=== PATIENT | male | born 1960 | race Caucasian/White ===

== ENCOUNTER 2016-07-29 11:08 | Inpatient (IN) | payer MEDICAID ==
[~2016-07-29] VITALS: Ht 193 cm; Wt 89.1 kg
[~2016-07-29 11:08] MED LIST: FOLI1TAB51 PO; GABA300C8 PO; LISI2.5T47 PO; METF-312 PO; NOR5T GT; NOR5T PO; THIA50CA PO; TRAZ100T2 PO
[2016-07-29] MEDS ORDERED: SODIUM CHLORIDE 0.9% 500 ML IVB ONE (12:17)
[2016-07-29] MEDS ORDERED: LEVOFLOXACIN 750MG 150 ML IV ONE (12:30)
[2016-07-29 13:32] LABS: Basophils # (auto) 0 uL; Basophils % (auto) 0.6 % (0.0-2.0); Eosinophils # (auto) 0.1 uL; Eosinophils % (auto) 1.5 % (0.0-7.0); Hematocrit 25.7 % (41.0-53.0); Hemoglobin 8.5 g/dL (13.5-17.5); Lymphocytes # (auto) 0.6 uL; Lymphocytes % (auto) 9.2 % (10.0-50.0); Mean Corpuscular Hemoglobin 31.1 pg (28.0-32.0); Mean Corpuscular Hgb Conc. 33.2 g/dL (32.0-36.0); Mean Corpuscular Volume 93.7 fL (80.0-100.0); Mean Platelet Volume 7.9 fL (7.4-10.4); Monocytes # (auto) 0.7 uL; Neutrophils # (auto) 4.8 uL; Neutrophils % (auto) 77.7 % (37.0-80.0); Platelet Count (auto) 213 10^3/uL (140-450); White Blood Cell 6.2 10^3/uL (4.4-10.8)
[2016-07-29 13:40] LABS: Albumin 2.6 g/dL (3.4-5.0); BUN/Creatinine Ratio 22.8; Bilirubin, Total 0.3 mg/dL (0.2-1.0); Calcium 7.9 mg/dL (8.5-10.1); Magnesium 2.3 mg/dL (1.6-2.6); Potassium 4.8 mmol/L (3.5-5.1)
[2016-07-29 13:46] LABS: INR 1.04 (0.9-1.15); Prothrombin Time 10.7 sec (9.37-12.3)
[2016-07-29] MEDS ORDERED: FUROSEMIDE 40 MG/4 ML VIAL IV ONE (14:15)
[2016-07-29] MEDS ORDERED: MORPHINE SULF INJ 2 MG/ML SYRINGE 1ML IV PRN (15:30)
[2016-07-29] MEDS ORDERED: ONDANSETRON HCL 4 MG/2 ML VIAL IV PRN (15:30)
[2016-07-29] MEDS ORDERED: NITROGLYCERIN 0.4 MG SL TAB SL PRN (15:30)
[2016-07-29] MEDS ORDERED: DOCUSATE SOD 100 MG CAP PO PRN (15:30)
[2016-07-29] MEDS ORDERED: TEMAZEPAM 15 MG CAP PO PRN (15:30)
[2016-07-29] MEDS ORDERED: DEXTROSE (50%) 50ML SYRG IV PRN (15:30)
[2016-07-29] MEDS ORDERED: GABAPENTIN 300 MG CAP PO ONE (15:45)
[2016-07-29] MEDS ORDERED: LISINOPRIL 5 MG TAB PO ONE (15:45)
[2016-07-29] MEDS ORDERED: POTASSIUM CHLORIDE 8 MEQ TAB PO ONE (15:45)
[2016-07-29] MEDS ORDERED: THIAMINE HCL 100 MG TAB PO ONE (15:45)
[2016-07-29] MEDS ORDERED: FAMOTIDINE 20 MG TAB PO ONE (15:45)
[2016-07-29] MEDS ORDERED: B-COMPLEX W/ C & FOLIC ACID(NEPHROVITE TAB) PO ONE (15:45)
[2016-07-29] MEDS: ENOXAPARIN SOD 40 MG/0.4 ML SYRINGE SC SCH (16:08)
[2016-07-29] MEDS: SODIUM CHLORIDE 0.9% 1,000 ML IV SCH (16:09)
[2016-07-29] MEDS: MULTIPLE VITAMIN TAB PO SCH (16:09)
[2016-07-29] MEDS: ACCU-CHEK COMFORT CURVE STRIP VI SCH ×2 (16:10→22:00)
[2016-07-29] MEDS: metFORMIN HYDROCHLORIDE 500 MG TAB PO SCH (16:11)
[2016-07-29] MEDS: InsuLIN REG 1unit/0.01ml Soln (100units/ml) SC SCH ×2 (16:11→22:00)
[2016-07-29 16:28] LABS: Urine Bilirubin Negative (Negative); Urine Color Yellow (Yellow); Urine Glucose Normal (Normal); Urine Ketone Negative (Negative); Urine RBC 20 /hpf (0 - 3); Urine Urobilinogen Normal (Negative)
[2016-07-29 16:36] LABS: Temperature: 22.7 C (20.0-25.0)
[2016-07-29 16:37] LABS: Urine Blood 3+ /uL (Negative); Urine Nitrite POSITIVE (Negative)
[2016-07-29] MEDS: POTASSIUM CHLORIDE 8 MEQ TAB PO SCH (16:58)
[2016-07-29] MEDS: FUROSEMIDE 20 MG TAB PO SCH (16:58)
[2016-07-29] MEDS: Boost Glucose Control 8 Ounces PO SCH ×2 (18:04→22:00)
[2016-07-29] MEDS: NICOTINE 21MG/24 HR TOPICAL PATCH TD SCH (18:58)
[2016-07-29] MEDS: HYDROcodone-ACET 5/325MG TAB PO PRN (21:10)
[2016-07-29] MEDS: FAMOTIDINE 20 MG TAB PO SCH (22:00)
[2016-07-29] MEDS: GABAPENTIN 300 MG CAP PO SCH (22:00)
[2016-07-29] MEDS: traZODone HCL 50 MG TAB PO SCH (22:00)
[2016-07-29 23:55] VITALS: BP 116/70
[2016-07-30 05:29] VITALS: BP 127/61
[2016-07-30] MEDS: Boost Glucose Control 8 Ounces PO SCH ×4 (06:00→23:05)
[2016-07-30 06:03] LABS: Basophils # (auto) 0 uL; Basophils % (auto) 0.4 % (0.0-2.0); DEFINITIVE VIEW TRANSMISSION; Eosinophils # (auto) 0.1 uL; Eosinophils % (auto) 0.9 % (0.0-7.0); Hematocrit 25.5 % (41.0-53.0); Hemoglobin 8.4 g/dL (13.5-17.5); Lymphocytes # (auto) 0.9 uL; Lymphocytes % (auto) 12.7 % (10.0-50.0); Mean Corpuscular Hemoglobin 30.9 pg (28.0-32.0); Mean Corpuscular Hgb Conc. 32.8 g/dL (32.0-36.0); Mean Corpuscular Volume 94.2 fL (80.0-100.0); Monocytes # (auto) 0.7 uL; Monocytes % (auto) 10.1 % (0.0-12.0); Neutrophils # (auto) 5.1 uL; Neutrophils % (auto) 75.9 % (37.0-80.0); Platelet Count (auto) 207 10^3/uL (140-450); White Blood Cell 6.8 10^3/uL (4.4-10.8)
[2016-07-30 06:14] LABS: Potassium 4.8 mmol/L (3.5-5.1)
[2016-07-30 06:18] LABS: Albumin 2.5 g/dL (3.4-5.0); BUN/Creatinine Ratio 24.7; Calcium 7.8 mg/dL (8.5-10.1)
[2016-07-30 06:21] LABS: Bilirubin, Total 0.2 mg/dL (0.2-1.0)
[2016-07-30] MEDS: InsuLIN REG 1unit/0.01ml Soln (100units/ml) SC SCH ×4 (07:00→23:06)
[2016-07-30] MEDS: metFORMIN HYDROCHLORIDE 500 MG TAB PO SCH ×2 (07:00→12:13)
[2016-07-30] MEDS: ACCU-CHEK COMFORT CURVE STRIP VI SCH ×4 (07:05→22:55)
[2016-07-30] MEDS: FUROSEMIDE 20 MG TAB PO SCH ×2 (07:14→18:00)
[2016-07-30] MEDS: GABAPENTIN 300 MG CAP PO SCH ×3 (07:14→22:55)
[2016-07-30] MEDS: SODIUM CHLORIDE 0.9% 1,000 ML IV SCH (08:08)
[2016-07-30 09:00] VITALS: BP 132/51
[2016-07-30] MEDS: THIAMINE HCL 100 MG TAB PO SCH (10:00)
[2016-07-30] MEDS ORDERED: LISINOPRIL 5 MG TAB PO SCH (10:00)
[2016-07-30] MEDS: ENOXAPARIN SOD 40 MG/0.4 ML SYRINGE SC SCH (10:38)
[2016-07-30] MEDS: B-COMPLEX W/ C & FOLIC ACID(NEPHROVITE TAB) PO SCH (10:38)
[2016-07-30] MEDS: POTASSIUM CHLORIDE 8 MEQ TAB PO SCH ×2 (10:39→22:55)
[2016-07-30] MEDS: NICOTINE 21MG/24 HR TOPICAL PATCH TD SCH (10:40)
[2016-07-30] MEDS: FAMOTIDINE 20 MG TAB PO SCH ×2 (10:50→22:55)
[2016-07-30] MEDS: HYDROcodone-ACET 5/325MG TAB PO PRN (11:23)
[2016-07-30 13:00] VITALS: BP 122/67
[2016-07-30] MEDS: MULTIPLE VITAMIN TAB PO SCH (14:14)
[2016-07-30] MEDS ORDERED: cefTRIAXone 1GM/50ML D5W 50 ML IV SCH (14:45)
[2016-07-30] MEDS: cefTRIAXone 1GM/50ML D5W 50 ML IV SCH (16:45)
[2016-07-30 17:00] VITALS: BP 144/70
[2016-07-30 22:00] VITALS: BP 159/75
[2016-07-30] MEDS: traZODone HCL 50 MG TAB PO SCH (22:55)
[2016-07-31] MEDS: SODIUM CHLORIDE 0.9% 1,000 ML IV SCH (00:48)
[2016-07-31] MEDS: ACETAMINOPHEN 325 MG TAB PO PRN ×2 (04:03→12:25)
[2016-07-31] MEDS: MORPHINE SULF INJ 2 MG/ML SYRINGE 1ML IV PRN (04:16)
[2016-07-31 05:00] VITALS: BP 164/75
[2016-07-31 05:45] LABS: Basophils # (auto) 0 uL; Basophils % (auto) 0.4 % (0.0-2.0); Eosinophils # (auto) 0 uL; Eosinophils % (auto) 0.2 % (0.0-7.0); Hematocrit 26.8 % (41.0-53.0); Lymphocytes # (auto) 0.6 uL; Lymphocytes % (auto) 7.9 % (10.0-50.0); Mean Corpuscular Hemoglobin 31.5 pg (28.0-32.0); Mean Corpuscular Hgb Conc. 33.6 g/dL (32.0-36.0); Mean Corpuscular Volume 93.7 fL (80.0-100.0); Mean Platelet Volume 8.1 fL (7.4-10.4); Monocytes # (auto) 0.7 uL; Monocytes % (auto) 8.2 % (0.0-12.0); Neutrophils # (auto) 6.7 uL; Neutrophils % (auto) 83.3 % (37.0-80.0); Platelet Count (auto) 207 10^3/uL (140-450); Red Cell Distribution Width 13.6 % (11.6-16.0)
[2016-07-31] MEDS: Boost Glucose Control 8 Ounces PO SCH ×4 (06:00→22:00)
[2016-07-31 06:19] LABS: BUN/Creatinine Ratio 25.5; Calcium 7.6 mg/dL (8.5-10.1); Magnesium 2.1 mg/dL (1.6-2.6); Potassium 4.6 mmol/L (3.5-5.1)
[2016-07-31] MEDS: InsuLIN REG 1unit/0.01ml Soln (100units/ml) SC SCH ×4 (06:43→22:00)
[2016-07-31] MEDS: ACCU-CHEK COMFORT CURVE STRIP VI SCH ×4 (06:43→22:20)
[2016-07-31] MEDS: FUROSEMIDE 20 MG TAB PO SCH (06:43)
[2016-07-31] MEDS: GABAPENTIN 300 MG CAP PO SCH ×3 (06:43→22:16)
[2016-07-31 08:29] VITALS: BP 128/63
[2016-07-31] MEDS: ENOXAPARIN SOD 40 MG/0.4 ML SYRINGE SC SCH (09:58)
[2016-07-31] MEDS: THIAMINE HCL 100 MG TAB PO SCH (09:59)
[2016-07-31] MEDS: B-COMPLEX W/ C & FOLIC ACID(NEPHROVITE TAB) PO SCH (09:59)
[2016-07-31] MEDS: POTASSIUM CHLORIDE 8 MEQ TAB PO SCH ×2 (09:59→22:16)
[2016-07-31] MEDS: FAMOTIDINE 20 MG TAB PO SCH ×2 (09:59→22:16)
[2016-07-31] MEDS: MULTIPLE VITAMIN TAB PO SCH (09:59)
[2016-07-31] MEDS: cefTRIAXone 1GM/50ML D5W 50 ML IV SCH (10:00)
[2016-07-31] MEDS: NICOTINE 21MG/24 HR TOPICAL PATCH TD SCH (10:01)
[2016-07-31 13:00] VITALS: BP_SYST 154; BP_SYST 155; BP_DIAS 68
[2016-07-31 17:00] VITALS: BP 150/79
[2016-07-31] MEDS ORDERED: ACETAMINOPHEN 325 MG TAB PO PRN (17:45)
[2016-07-31] MEDS: FUROSEMIDE 40 MG/4 ML VIAL IV SCH (17:47)
[2016-07-31] MEDS: LINEZOLID 600MG/300ML 300 ML IV SCH (17:47)
[2016-07-31] MEDS: D5W/SOD CHL 0.45% 1,000 ML IV SCH (17:48)
[2016-07-31 21:39] VITALS: BP 145/74
[2016-07-31 22:10] VITALS: BP 134/70
[2016-07-31] MEDS: ENOXAPARIN SOD 100 MG/1 ML SYRINGE SC SCH (22:16)
[2016-08-01] VITALS: BP_SYST 119; BP_SYST 128; BP_DIAS 66; BP_DIAS 80
[2016-08-01] MEDS: MORPHINE SULF INJ 2 MG/ML SYRINGE 1ML IV PRN (02:11)
[2016-08-01 04:00] VITALS: BP 166/89
[2016-08-01] MEDS: LINEZOLID 600MG/300ML 300 ML IV SCH ×2 (04:07→17:21)
[2016-08-01] MEDS: GABAPENTIN 300 MG CAP PO SCH ×3 (05:17→22:00)
[2016-08-01] MEDS: Boost Glucose Control 8 Ounces PO SCH ×4 (05:18→22:14)
[2016-08-01] MEDS: D5W/SOD CHL 0.45% 1,000 ML IV SCH (05:18)
[2016-08-01] MEDS: FUROSEMIDE 40 MG/4 ML VIAL IV SCH ×2 (05:18→17:22)
[2016-08-01] MEDS: ACCU-CHEK COMFORT CURVE STRIP VI SCH ×4 (06:08→22:00)
[2016-08-01] MEDS: InsuLIN REG 1unit/0.01ml Soln (100units/ml) SC SCH ×4 (06:11→22:35)
[2016-08-01 08:02] VITALS: BP 151/80
[2016-08-01] MEDS: THIAMINE HCL 100 MG TAB PO SCH (09:34)
[2016-08-01] MEDS: ENOXAPARIN SOD 100 MG/1 ML SYRINGE SC SCH ×2 (09:34→22:17)
[2016-08-01] MEDS: POTASSIUM CHLORIDE 8 MEQ TAB PO SCH ×2 (09:34→22:00)
[2016-08-01] MEDS: B-COMPLEX W/ C & FOLIC ACID(NEPHROVITE TAB) PO SCH (09:34)
[2016-08-01] MEDS: FAMOTIDINE 20 MG TAB PO SCH ×2 (09:34→22:00)
[2016-08-01] MEDS: MULTIPLE VITAMIN TAB PO SCH (09:34)
[2016-08-01] MEDS: NICOTINE 21MG/24 HR TOPICAL PATCH TD SCH (09:35)
[2016-08-01 11:14] LABS: Basophils # (auto) 0 uL; Basophils % (auto) 0.4 % (0.0-2.0); Eosinophils # (auto) 0.1 uL; Eosinophils % (auto) 0.9 % (0.0-7.0); Hemoglobin 9.7 g/dL (13.5-17.5); Lymphocytes # (auto) 0.8 uL; Mean Corpuscular Hemoglobin 31.4 pg (28.0-32.0); Mean Corpuscular Hgb Conc. 33.5 g/dL (32.0-36.0); Mean Corpuscular Volume 93.7 fL (80.0-100.0); Mean Platelet Volume 7.9 fL (7.4-10.4); Monocytes # (auto) 0.8 uL; Monocytes % (auto) 8.5 % (0.0-12.0); Neutrophils # (auto) 7.5 uL; Neutrophils % (auto) 81.2 % (37.0-80.0); Platelet Count (auto) 231 10^3/uL (140-450); Red Cell Distribution Width 13.5 % (11.6-16.0); White Blood Cell 9.3 10^3/uL (4.4-10.8)
[2016-08-01 11:26] LABS: BUN/Creatinine Ratio 29.8; Calcium 8.1 mg/dL (8.5-10.1); Magnesium 2.3 mg/dL (1.6-2.6); Phosphorus 3.6 mg/dL (2.6-4.90); Potassium 4.5 mmol/L (3.5-5.1)
[2016-08-01 11:53] VITALS: BP 158/77
[2016-08-01] MEDS: methylPREDNISolone SOD SUCC 40 MG/ML VL IV SCH ×3 (14:31→23:39)
[2016-08-01 14:32] LABS: Vitamin B12 339 pg/mL (211-911)
[2016-08-01 14:54] LABS: Temperature: 22.5 C (20.0-25.0)
[2016-08-01] MEDS: ALBUTEROL SULF 2.5 MG/0.5ML(0.5%) NEB SOLN NEB SCH ×2 (15:19→18:44)
[2016-08-01] MEDS: IPRATROPIUM BROM 0.5 MG/2.5ML INH SOL NEB SCH ×2 (15:19→18:44)
[2016-08-01 16:00] VITALS: BP 155/97
[2016-08-01] MEDS ORDERED: D5W/SOD CHL 0.45% 1,000 ML IV SCH (16:45)
[2016-08-01] MEDS: BUDESONIDE (INHALATION) 0.5 MG/2 ML NEB NEB SCH (18:44)
[2016-08-01] MEDS ORDERED: METOPROLOL TARTRATE 1MG/1ML-5ML VIAL IV ONE (19:45)
[2016-08-01] MEDS ORDERED: SODIUM CHLORIDE 0.9% 500 ML IV ONE (19:45)
[2016-08-01 20:00] VITALS: BP 123/71
[2016-08-02] VITALS (7 sets, daily range): BP systolic 119–140; BP diastolic 80–98
[2016-08-02] MEDS: LINEZOLID 600MG/300ML 300 ML IV SCH ×2 (04:19→18:09)
[2016-08-02] MEDS: Boost Glucose Control 8 Ounces PO SCH ×4 (05:17→20:37)
[2016-08-02] MEDS: FUROSEMIDE 40 MG/4 ML VIAL IV SCH ×2 (05:17→18:09)
[2016-08-02] MEDS: methylPREDNISolone SOD SUCC 40 MG/ML VL IV SCH ×3 (05:17→18:09)
[2016-08-02] MEDS: GABAPENTIN 300 MG CAP PO SCH ×3 (05:18→20:36)
[2016-08-02] MEDS: ALBUTEROL SULF 2.5 MG/0.5ML(0.5%) NEB SOLN NEB SCH ×4 (06:00→19:57)
[2016-08-02] MEDS: IPRATROPIUM BROM 0.5 MG/2.5ML INH SOL NEB SCH ×4 (06:00→19:57)
[2016-08-02] MEDS: ACCU-CHEK COMFORT CURVE STRIP VI SCH ×4 (06:51→21:57)
[2016-08-02] MEDS: InsuLIN REG 1unit/0.01ml Soln (100units/ml) SC SCH ×4 (06:58→21:54)
[2016-08-02 09:00] LABS: Basophils # (auto) 0 uL; Eosinophils # (auto) 0 uL; Hematocrit 30.5 % (41.0-53.0); Hemoglobin 10.1 g/dL (13.5-17.5); Lymphocytes # (auto) 0.6 uL; Lymphocytes % (auto) 9.6 % (10.0-50.0); Mean Corpuscular Hemoglobin 30.9 pg (28.0-32.0); Mean Corpuscular Volume 93.5 fL (80.0-100.0); Mean Platelet Volume 8.6 fL (7.4-10.4); Monocytes # (auto) 0.2 uL; Monocytes % (auto) 2.7 % (0.0-12.0); Neutrophils # (auto) 5.7 uL; Neutrophils % (auto) 87.7 % (37.0-80.0); Platelet Count (auto) 228 10^3/uL (140-450); Red Cell Distribution Width 13.8 % (11.6-16.0); White Blood Cell 6.5 10^3/uL (4.4-10.8)
[2016-08-02 09:19] LABS: Albumin 1.9 g/dL (3.4-5.0); BUN/Creatinine Ratio 34.4; Bilirubin, Total 0.2 mg/dL (0.2-1.0); Calcium 8.1 mg/dL (8.5-10.1); Potassium 4.5 mmol/L (3.5-5.1); Total Protein 6.2 g/dL (6.4-8.2)
[2016-08-02] MEDS: FAMOTIDINE 20 MG TAB PO SCH ×3 (10:00→20:36)
[2016-08-02] MEDS: THIAMINE HCL 100 MG TAB PO SCH ×2 (10:00→11:20)
[2016-08-02] MEDS: B-COMPLEX W/ C & FOLIC ACID(NEPHROVITE TAB) PO SCH ×2 (10:00→11:20)
[2016-08-02] MEDS: MULTIPLE VITAMIN TAB PO SCH ×2 (10:00→11:19)
[2016-08-02] MEDS: POTASSIUM CHLORIDE 8 MEQ TAB PO SCH ×3 (10:00→20:36)
[2016-08-02] MEDS: BUDESONIDE (INHALATION) 0.5 MG/2 ML NEB NEB SCH ×2 (10:00→19:57)
[2016-08-02] MEDS: ENOXAPARIN SOD 100 MG/1 ML SYRINGE SC SCH ×2 (10:39→21:57)
[2016-08-02] MEDS: NICOTINE 21MG/24 HR TOPICAL PATCH TD SCH (10:39)
[2016-08-02] MEDS: chlordiazePOXIDE HCL 5 MG CAP PO SCH ×2 (14:48→20:36)
[2016-08-02] MEDS: HYDROcodone-ACET 5/325MG TAB PO PRN (14:53)
[2016-08-03] VITALS: BP 162/106
[2016-08-03] MEDS: methylPREDNISolone SOD SUCC 40 MG/ML VL IV SCH ×5 (00:50→23:54)
[2016-08-03] MEDS: LINEZOLID 600MG/300ML 300 ML IV SCH ×2 (03:57→17:51)
[2016-08-03] MEDS: chlordiazePOXIDE HCL 5 MG CAP PO SCH ×3 (05:07→21:37)
[2016-08-03] MEDS: GABAPENTIN 300 MG CAP PO SCH ×3 (05:07→21:36)
[2016-08-03] MEDS: Boost Glucose Control 8 Ounces PO SCH ×4 (05:07→22:34)
[2016-08-03] MEDS: FUROSEMIDE 40 MG/4 ML VIAL IV SCH ×2 (05:08→17:52)
[2016-08-03] MEDS: InsuLIN REG 1unit/0.01ml Soln (100units/ml) SC SCH ×4 (06:09→22:33)
[2016-08-03] MEDS: ACCU-CHEK COMFORT CURVE STRIP VI SCH ×5 (06:10→22:34)
[2016-08-03] MEDS: IPRATROPIUM BROM 0.5 MG/2.5ML INH SOL NEB SCH ×3 (08:04→14:00)
[2016-08-03] MEDS: ALBUTEROL SULF 2.5 MG/0.5ML(0.5%) NEB SOLN NEB SCH ×3 (08:04→14:00)
[2016-08-03] MEDS: BUDESONIDE (INHALATION) 0.5 MG/2 ML NEB NEB SCH (08:05)
[2016-08-03] MEDS: THIAMINE HCL 100 MG TAB PO SCH (10:00)
[2016-08-03] MEDS: MULTIPLE VITAMIN TAB PO SCH (10:00)
[2016-08-03] MEDS: POTASSIUM CHLORIDE 8 MEQ TAB PO SCH ×2 (10:00→21:36)
[2016-08-03] MEDS: FAMOTIDINE 20 MG TAB PO SCH ×2 (10:00→21:36)
[2016-08-03] MEDS: NICOTINE 21MG/24 HR TOPICAL PATCH TD SCH (11:16)
[2016-08-03 12:00] VITALS: BP 126/70
[2016-08-03 15:57] VITALS: BP 135/76
[2016-08-03] MEDS ORDERED: DEXTROSE (50%) 50ML SYRG IV PRN (17:45)
[2016-08-03] MEDS ORDERED: InsuLIN REG 1unit/0.01ml Soln (100units/ml) SC SCH (17:45)
[2016-08-03] MEDS: HYDROcodone-ACET 5/325MG TAB PO PRN (18:20)
[2016-08-03 20:10] LABS: Albumin 2.1 g/dL (3.4-5.0); BUN/Creatinine Ratio 38.7; Bilirubin, Total 0.2 mg/dL (0.2-1.0); Calcium 7.9 mg/dL (8.5-10.1); Potassium 4.2 mmol/L (3.5-5.1); Total Protein 6.4 g/dL (6.4-8.2)
[2016-08-03] MEDS: LORazepam 2MG/ML-1ML VIAL IV SCH (21:37)
[2016-08-04] VITALS (7 sets, daily range): BP systolic 95–128; BP diastolic 41–88
[2016-08-04] MEDS: LINEZOLID 600MG/300ML 300 ML IV SCH ×2 (03:51→16:35)
[2016-08-04] MEDS: FUROSEMIDE 40 MG/4 ML VIAL IV SCH ×2 (05:39→17:38)
[2016-08-04] MEDS: GABAPENTIN 300 MG CAP PO SCH ×3 (05:40→21:52)
[2016-08-04] MEDS: methylPREDNISolone SOD SUCC 40 MG/ML VL IV SCH ×4 (05:40→23:29)
[2016-08-04] MEDS: Boost Glucose Control 8 Ounces PO SCH ×4 (05:40→21:50)
[2016-08-04] MEDS: chlordiazePOXIDE HCL 5 MG CAP PO SCH ×4 (05:40→21:52)
[2016-08-04] MEDS: ACCU-CHEK COMFORT CURVE STRIP VI SCH ×4 (06:39→22:16)
[2016-08-04] MEDS: InsuLIN REG 1unit/0.01ml Soln (100units/ml) SC SCH ×4 (06:51→22:15)
[2016-08-04] MEDS ORDERED: InsuLIN REG 1unit/0.01ml Soln (100units/ml) SC SCH (07:00)
[2016-08-04 07:05] LABS: Basophils # (auto) 0 uL; Basophils % (auto) 0.1 % (0.0-2.0); Eosinophils # (auto) 0 uL; Hemoglobin 10.8 g/dL (13.5-17.5); Lymphocytes % (auto) 6.7 % (10.0-50.0); Mean Corpuscular Hemoglobin 30.6 pg (28.0-32.0); Mean Corpuscular Hgb Conc. 33.7 g/dL (32.0-36.0); Mean Platelet Volume 8.6 fL (7.4-10.4); Monocytes # (auto) 0.7 uL; Monocytes % (auto) 4.8 % (0.0-12.0); Neutrophils # (auto) 13.2 uL; Neutrophils % (auto) 88.4 % (37.0-80.0); Platelet Count (auto) 325 10^3/uL (140-450); Red Cell Distribution Width 13.7 % (11.6-16.0); White Blood Cell 14.9 10^3/uL (4.4-10.8)
[2016-08-04] MEDS: IPRATROPIUM BROM 0.5 MG/2.5ML INH SOL NEB SCH ×4 (07:10→19:56)
[2016-08-04] MEDS: ALBUTEROL SULF 2.5 MG/0.5ML(0.5%) NEB SOLN NEB SCH ×4 (07:10→19:56)
[2016-08-04 07:46] LABS: Albumin 2.1 g/dL (3.4-5.0); BUN/Creatinine Ratio 44.8; Calcium 7.9 mg/dL (8.5-10.1); Potassium 4.8 mmol/L (3.5-5.1)
[2016-08-04 07:49] LABS: Bilirubin, Total 0.3 mg/dL (0.2-1.0); Total Protein 6.4 g/dL (6.4-8.2)
[2016-08-04 08:14] LABS: INR 1.03 (0.9-1.15); Partial Thromboplastin Time 25.2 sec (22.64-33.71); Prothrombin Time 10.6 sec (9.37-12.3)
[2016-08-04] MEDS: MORPHINE SULF INJ 2 MG/ML SYRINGE 1ML IV PRN ×2 (09:18→14:27)
[2016-08-04] MEDS: FAMOTIDINE 20 MG TAB PO SCH ×2 (09:52→21:52)
[2016-08-04] MEDS: MULTIPLE VITAMIN TAB PO SCH (09:52)
[2016-08-04] MEDS: POTASSIUM CHLORIDE 8 MEQ TAB PO SCH ×2 (09:52→21:51)
[2016-08-04] MEDS: THIAMINE HCL 100 MG TAB PO SCH (09:52)
[2016-08-04] MEDS: LORazepam 2MG/ML-1ML VIAL IV SCH ×2 (09:52→21:50)
[2016-08-04] MEDS: NICOTINE 21MG/24 HR TOPICAL PATCH TD SCH (09:53)
[2016-08-04] MEDS: BUDESONIDE (INHALATION) 0.5 MG/2 ML NEB NEB SCH ×3 (11:17→19:58)
[2016-08-04] MEDS: HYDROcodone-ACET 5/325MG TAB PO PRN (14:58)
[2016-08-04] MEDS: QUEtiapine FUMARATE 25 MG TAB PO SCH (21:56)
[2016-08-04] MEDS: INSULIN DETEMIR(LEVEMIR) 1unit/0.01ml Soln (100units/ml) SC SCH (22:16)
[2016-08-05] VITALS (8 sets, daily range): BP systolic 98–191; BP diastolic 69–108
[2016-08-05] MEDS: LINEZOLID 600MG/300ML 300 ML IV SCH ×2 (04:00→16:29)
[2016-08-05] MEDS: methylPREDNISolone SOD SUCC 40 MG/ML VL IV SCH ×3 (05:22→17:20)
[2016-08-05] MEDS: FUROSEMIDE 40 MG/4 ML VIAL IV SCH ×2 (05:22→17:20)
[2016-08-05] MEDS: chlordiazePOXIDE HCL 5 MG CAP PO SCH ×4 (05:23→22:04)
[2016-08-05] MEDS: GABAPENTIN 300 MG CAP PO SCH ×3 (05:23→22:04)
[2016-08-05] MEDS: Boost Glucose Control 8 Ounces PO SCH ×4 (05:23→22:05)
[2016-08-05] MEDS: InsuLIN REG 1unit/0.01ml Soln (100units/ml) SC SCH ×4 (06:17→22:00)
[2016-08-05] MEDS: ACCU-CHEK COMFORT CURVE STRIP VI SCH ×4 (06:18→22:00)
[2016-08-05] MEDS: IPRATROPIUM BROM 0.5 MG/2.5ML INH SOL NEB SCH ×3 (07:21→18:00)
[2016-08-05] MEDS: ALBUTEROL SULF 2.5 MG/0.5ML(0.5%) NEB SOLN NEB SCH ×3 (07:21→18:00)
[2016-08-05 07:32] LABS: Basophils # (auto) 0 uL; Eosinophils # (auto) 0 uL; Hematocrit 31.1 % (41.0-53.0); Hemoglobin 10.1 g/dL (13.5-17.5); Lymphocytes # (auto) 1.1 uL; Mean Corpuscular Hemoglobin 30.1 pg (28.0-32.0); Mean Corpuscular Hgb Conc. 32.5 g/dL (32.0-36.0); Mean Corpuscular Volume 92.5 fL (80.0-100.0); Mean Platelet Volume 8.7 fL (7.4-10.4); Monocytes # (auto) 0.5 uL; Monocytes % (auto) 3.6 % (0.0-12.0); Neutrophils # (auto) 12.6 uL; Neutrophils % (auto) 88.4 % (37.0-80.0); Platelet Count (auto) 357 10^3/uL (140-450); White Blood Cell 14.2 10^3/uL (4.4-10.8)
[2016-08-05 07:54] LABS: BUN/Creatinine Ratio 48.5; Calcium 7.9 mg/dL (8.5-10.1); Potassium 4.4 mmol/L (3.5-5.1)
[2016-08-05] MEDS: MORPHINE SULF INJ 2 MG/ML SYRINGE 1ML IV PRN (08:21)
[2016-08-05] MEDS: FAMOTIDINE 20 MG TAB PO SCH ×2 (09:31→22:03)
[2016-08-05] MEDS: NICOTINE 21MG/24 HR TOPICAL PATCH TD SCH (09:31)
[2016-08-05] MEDS: THIAMINE HCL 100 MG TAB PO SCH (09:32)
[2016-08-05] MEDS: MULTIPLE VITAMIN TAB PO SCH (09:32)
[2016-08-05] MEDS: QUEtiapine FUMARATE 25 MG TAB PO SCH (09:33)
[2016-08-05] MEDS: POTASSIUM CHLORIDE 8 MEQ TAB PO SCH ×2 (09:33→23:05)
[2016-08-05] MEDS: LORazepam 2MG/ML-1ML VIAL IV SCH (09:34)
[2016-08-05] MEDS ORDERED: DIGOXIN (250MCG/ML) 2 ML AMPULE IV ONE (11:45)
[2016-08-05] MEDS: BUDESONIDE (INHALATION) 0.5 MG/2 ML NEB NEB SCH ×2 (13:12→22:00)
[2016-08-05] MEDS: HYDROcodone-ACET 5/325MG TAB PO PRN ×2 (13:45→20:13)
[2016-08-05] MEDS: FUROSEMIDE 20 MG TAB PO SCH (18:00)
[2016-08-05] MEDS ORDERED: MORPHINE SULF INJ 2 MG/ML SYRINGE 1ML IV PRN ×2 (18:00)
[2016-08-05] MEDS ORDERED: AMIODARONE HCL 150 MG in D5W 5% 100 ML IV ONE (18:00)
[2016-08-05] MEDS ORDERED: AMIODARONE HCL 900 MG in DEXTROSE 500 ML IV SCH (18:02)
[2016-08-05] MEDS: INSULIN DETEMIR(LEVEMIR) 1unit/0.01ml Soln (100units/ml) SC SCH (22:00)
[2016-08-06] VITALS (7 sets, daily range): BP systolic 130–175; BP diastolic 67–101
[2016-08-06] MEDS ORDERED: AMIODARONE HCL 900 MG in DEXTROSE 500 ML IV SCH (00:02)
[2016-08-06] MEDS: methylPREDNISolone SOD SUCC 40 MG/ML VL IV SCH ×3 (00:08→12:03)
[2016-08-06] MEDS: LINEZOLID 600MG/300ML 300 ML IV SCH (04:55)
[2016-08-06] MEDS: Boost Glucose Control 8 Ounces PO SCH ×4 (06:00→21:58)
[2016-08-06] MEDS: chlordiazePOXIDE HCL 5 MG CAP PO SCH ×4 (06:36→21:58)
[2016-08-06] MEDS: FUROSEMIDE 20 MG TAB PO SCH (06:36)
[2016-08-06] MEDS: GABAPENTIN 300 MG CAP PO SCH ×3 (06:37→21:58)
[2016-08-06] MEDS: ACCU-CHEK COMFORT CURVE STRIP VI SCH ×4 (06:37→22:03)
[2016-08-06] MEDS: ALBUTEROL SULF 2.5 MG/0.5ML(0.5%) NEB SOLN NEB SCH ×2 (06:38)
[2016-08-06] MEDS: IPRATROPIUM BROM 0.5 MG/2.5ML INH SOL NEB SCH ×4 (06:38→18:58)
[2016-08-06 07:07] LABS: Calcium 7.6 mg/dL (8.5-10.1); Potassium 4.8 mmol/L (3.5-5.1)
[2016-08-06 07:13] LABS: BUN/Creatinine Ratio 50.6
[2016-08-06] MEDS: InsuLIN REG 1unit/0.01ml Soln (100units/ml) SC SCH ×4 (07:21→22:02)
[2016-08-06] MEDS: MULTIPLE VITAMIN TAB PO SCH (12:00)
[2016-08-06] MEDS: FAMOTIDINE 20 MG TAB PO SCH ×2 (12:00→21:58)
[2016-08-06] MEDS: QUEtiapine FUMARATE 25 MG TAB PO SCH (12:00)
[2016-08-06] MEDS: POTASSIUM CHLORIDE 8 MEQ TAB PO SCH (12:00)
[2016-08-06] MEDS: NICOTINE 21MG/24 HR TOPICAL PATCH TD SCH (12:00)
[2016-08-06] MEDS: THIAMINE HCL 100 MG TAB PO SCH (12:00)
[2016-08-06] MEDS ORDERED: SODIUM CHLORIDE 0.9% 250 ML IV ONE (13:15)
[2016-08-06] MEDS: ALBUTEROL SULF 2.5 MG/0.5ML(0.5%) NEB SOLN NEB PRN ×2 (13:39→18:59)
[2016-08-06] MEDS: BUDESONIDE (INHALATION) 0.5 MG/2 ML NEB NEB SCH ×2 (13:40→18:59)
[2016-08-06] MEDS: HYDROcodone-ACET 5/325MG TAB PO PRN (14:45)
[2016-08-06] MEDS: ALBUMIN 25% 50 ML IV SCH ×2 (15:41→22:25)
[2016-08-06] MEDS: AMIODARONE HCL 200 MG TAB PO SCH (21:58)
[2016-08-06] MEDS: predniSONE 20 MG TAB PO SCH (21:58)
[2016-08-06] MEDS: INSULIN DETEMIR(LEVEMIR) 1unit/0.01ml Soln (100units/ml) SC SCH (22:03)
[2016-08-07] VITALS (7 sets, daily range): BP systolic 166–196; BP diastolic 71–91
[2016-08-07] MEDS: GABAPENTIN 300 MG CAP PO SCH ×3 (05:25→14:00)
[2016-08-07] MEDS: Boost Glucose Control 8 Ounces PO SCH ×3 (05:25→18:00)
[2016-08-07] MEDS: chlordiazePOXIDE HCL 5 MG CAP PO SCH ×4 (05:25→18:00)
[2016-08-07] MEDS: ALBUMIN 25% 50 ML IV SCH ×2 (05:26→14:00)
[2016-08-07] MEDS: ACCU-CHEK COMFORT CURVE STRIP VI SCH ×3 (05:39→17:00)
[2016-08-07] MEDS: InsuLIN REG 1unit/0.01ml Soln (100units/ml) SC SCH ×4 (05:59→17:00)
[2016-08-07] MEDS: IPRATROPIUM BROM 0.5 MG/2.5ML INH SOL NEB SCH ×4 (06:00→18:55)
[2016-08-07] MEDS: BUDESONIDE (INHALATION) 0.5 MG/2 ML NEB NEB SCH (06:48)
[2016-08-07 07:48] LABS: Basophils # (auto) 0 uL; Basophils % (auto) 0.1 % (0.0-2.0); Eosinophils # (auto) 0 uL; Eosinophils % (auto) 0.2 % (0.0-7.0); Hematocrit 29.8 % (41.0-53.0); Lymphocytes # (auto) 0.6 uL; Lymphocytes % (auto) 3.6 % (10.0-50.0); Mean Corpuscular Hemoglobin 30.8 pg (28.0-32.0); Mean Corpuscular Hgb Conc. 33.5 g/dL (32.0-36.0); Monocytes # (auto) 1.1 uL; Monocytes % (auto) 5.9 % (0.0-12.0); Neutrophils # (auto) 16.3 uL; Neutrophils % (auto) 90.2 % (37.0-80.0); Platelet Count (auto) 409 10^3/uL (140-450); Red Cell Distribution Width 13.7 % (11.6-16.0)
[2016-08-07 07:57] LABS: Albumin 2.6 g/dL (3.4-5.0); BUN/Creatinine Ratio 63.2; Bilirubin, Total 0.3 mg/dL (0.2-1.0); Calcium 8.1 mg/dL (8.5-10.1); Potassium 4.9 mmol/L (3.5-5.1); Total Protein 5.9 g/dL (6.4-8.2)
[2016-08-07] MEDS: QUEtiapine FUMARATE 25 MG TAB PO SCH (10:00)
[2016-08-07] MEDS: FAMOTIDINE 20 MG TAB PO SCH (10:00)
[2016-08-07] MEDS: AMIODARONE HCL 200 MG TAB PO SCH (10:00)
[2016-08-07] MEDS: MULTIPLE VITAMIN TAB PO SCH (10:00)
[2016-08-07] MEDS: THIAMINE HCL 100 MG TAB PO SCH (10:00)
[2016-08-07] MEDS: predniSONE 20 MG TAB PO SCH (10:00)
[2016-08-07] MEDS: NICOTINE 21MG/24 HR TOPICAL PATCH TD SCH (10:00)
[2016-08-07] MEDS ORDERED: HALOPERIDOL LACTATE 5 MG/ML INJ VIAL IM PRN (10:45)
== END 2016-08-07 20:30 | disposition hospice, home (50) ==
LOC: ER 11:15 → TELE 11:16 → TELE-WESTW 23:19 → DOU IN ICU 07-31 22:10 → TELE-WESTW 08-07 08:51
PROVIDERS: ADMIT Internal Medicine; ATTEND Internal Medicine
PROC: 0JHD3XZ Insertion of Tunneled Vascular Access Device into Right Upper Arm Subcutaneous Tissue and Fascia, Percutaneous Approach (ICD-10-PCS; principal; 2016-08-01)
DX: K74.60 Unspecified cirrhosis of liver (principal); J96.01 Acute respiratory failure with hypoxia; G93.41 Metabolic encephalopathy; E43 Unspecified severe protein-calorie malnutrition; J18.9 Pneumonia, unspecified organism; I13.0 Hypertensive heart and chronic kidney disease with heart failure and stage 1 through stage 4 chronic kidney disease, or unspecified chronic kidney disease; N17.9 Acute kidney failure, unspecified; I50.22 Chronic systolic (congestive) heart failure; N18.3 Chronic kidney disease, stage 3 (moderate); F10.239 Alcohol dependence with withdrawal, unspecified; E11.21 Type 2 diabetes mellitus with diabetic nephropathy; E86.0 Dehydration; N39.0 Urinary tract infection, site not specified; B19.20 Unspecified viral hepatitis C without hepatic coma; D63.8 Anemia in other chronic diseases classified elsewhere; E11.22 Type 2 diabetes mellitus with diabetic chronic kidney disease; E78.5 Hyperlipidemia, unspecified; F17.210 Nicotine dependence, cigarettes, uncomplicated; J44.9 Chronic obstructive pulmonary disease, unspecified; Z83.3 Family history of diabetes mellitus; Z86.73 Personal history of transient ischemic attack (TIA), and cerebral infarction without residual deficits
CPT/HCPCS: 36415; 36600; 70450; 71010; 71250; 74176; 80048; 80053; 81001; 82040; 82140; 82150; 82607; 82746; 82805; 82962; 83036; 83605; 83615; 83690; 83735; 83880; 84100; 84439; 84443; 84484; 85025; 85379; 85610; 85730; 87040; 87081; 87086; 87088; 87186; 87400; 93005; 94640; 96365; 96375; 97001; J0696; J1815; J1956; J7060